=== PATIENT | male | born 1960 | race Two or more races ===

== ENCOUNTER 2018-12-02 01:12 | Emergency (ER) | payer BC ==
[~2018-12-02] VITALS: Ht 188 cm; Wt 96.4 kg
--- NOTE | 2018-12-02 01:31 | NUR ---
Patient A&O x3, appropriate and resting comfortably on gurney. He reports feeling like his throat is swelling, SpO2 is WNL 97% on room air with patent airway
[2018-12-02] MEDS ORDERED: predniSONE 20 mg tablet PO ONE (02:15)
[2018-12-02] MEDS ORDERED: diphenhydrAMINE 25 MG/10 ML UD oral solution PO ONE (02:15)
[2018-12-02] MEDS ORDERED: famotidine 20mg tablet PO ONE (02:15)
[2018-12-02] MEDS ORDERED: AMLO10TA4 PO (02:23)
[2018-12-02 02:33] VITALS: BP 127/75
== END 2018-12-02 02:37 | disposition home or self-care (01) ==
LOC: ER 01:14
DX: T78.3XXA Angioneurotic edema, initial encounter (principal); I10 Essential (primary) hypertension; Z79.899 Other long term (current) drug therapy; Y92.89 Other specified places as the place of occurrence of the external cause
CPT/HCPCS: 93005; 99284; J7512; Q0163

== ENCOUNTER 2018-12-12 16:15 | Emergency (ER) | payer BC ==
[~2018-12-12] VITALS: Ht 188 cm; Wt 80.0 kg
[~2018-12-12 16:15] MED LIST: AMLO10TA4 PO
[2018-12-12 18:22] LABS: BASOPHILS # (AUTO) 0.1 X10'3 (0-0.2); BASOPHILS % (AUTO) 0.7 % (0-1); EOSINOPHILS # (AUTO) 0.3 X10'3 (0-0.9); HEMATOCRIT 41.4 % (42.0-52.0); HEMOGLOBIN 14.2 g/dl (14.0-17.9); LYMPHOCYTES # (AUTO) 4.3 X10'3 (1.1-4.8); LYMPHOCYTES % (AUTO) 40.1 % (21-51); MEAN CORPUSCULAR HEMOGLOBIN 29.7 PG (27.0-31.0); MEAN CORPUSCULAR HGB CONC 34.3 g/dL (33.0-36.5); MEAN CORPUSCULAR VOLUME 86.7 FL (78-98); MEAN PLATELET VOLUME 7.6 FL (7.4-10.4); MONOCYTES % (AUTO) 8.9 % (2-12); NEUTROPHILS # (AUTO) 5.1 X10'3 (1.8-7.7); NEUTROPHILS % (AUTO) 47.3 % (42-75); PLATELET COUNT 292 X10'3 (140-440); RED BLOOD COUNT 4.77 X10'6 (4.70-6.10); RED CELL DISTRIBUTION WIDTH 13.2 % (11.5-14.5); WHITE BLOOD COUNT 10.8 X10'3 (4.5-11.0)
[2018-12-12 19:13] LABS: TOTAL PROTEIN 7.2 G/DL (6.4-8.2)
[2018-12-12 19:14] LABS: ALANINE AMINOTRANSFERASE 41 U/L (12-78); ALBUMIN 3.8 G/DL (3.4-5.0); ALBUMIN/GLOBULIN RATIO 1.1 (1.1-1.5); ALKALINE PHOSPHATASE 75 IU/L (46-116); ANION GAP 7 (8-16); ASPARTATE AMINO TRANSFERASE 21 U/L (10-37); BILIRUBIN,TOTAL 0.4 MG/DL (0.1-1.0); BLOOD UREA NITROGEN 16 MG/DL (7-18); CALCIUM 9.2 MG/DL (8.5-10.1); CHLORIDE 103 MMOL/L (99-107); CREATININE 1.14 MG/DL (0.60-1.10); GLUCOSE 240 MG/DL (70-104); SODIUM 138 MMOL/L (135-145); TOTAL CARBON DIOXIDE 27.7 MMOL/L (24-32); eGFR 67 ML/MIN
[2018-12-12] MEDS ORDERED: iohexol 300mg/ml 100ml inj. ONE (20:05)
[2018-12-12 21:55] VITALS: BP 158/93
== END 2018-12-12 21:56 | disposition home or self-care (01) ==
LOC: ER 16:15
DX: R09.89 Other specified symptoms and signs involving the circulatory and respiratory systems (principal); M54.2 Cervicalgia; E78.00 Pure hypercholesterolemia, unspecified; I10 Essential (primary) hypertension; E11.9 Type 2 diabetes mellitus without complications; E03.9 Hypothyroidism, unspecified; Z79.899 Other long term (current) drug therapy
CPT/HCPCS: 36415; 70491; 80053; 85025; 99284; Q9967